=== PATIENT | female | born 1945 | race Caucasian/White ===

== ENCOUNTER 2024-01-07 12:45 | Emergency (ER) | payer OTHER ==
[2024-01-07 12:59] VITALS: RESP 18; BMI 24.5
[2024-01-07] MEDS ORDERED: ACETAMINOPHEN INJECTION 100 ML IVPB ONE ×2 (14:00→21:21)
[2024-01-07 14:18] LABS: BASO % 0.7 % (0-2.0); EOS % 1.3 % (0-4.5); HEMATOCRIT 38.2 % (32.4-45.2); HEMOGLOBIN 13.2 GM/dL (10.7-15.3); LYMPH % 21.5 % (8-40); MCH 29.7 pg (25.7-33.7); MCHC 34.5 g/dl (32.0-36.0); MEAN PLT VOLUME 6.4 fl (7.5-11.1); MONO % 6.9 % (3.8-10.2); NEUT % 69.6 % (42.8-82.8); PLATELET COUNT 228 10^3/uL (134-434); RBC 4.45 M/mm3 (3.60-5.2); RDW 13.9 % (11.6-15.6); WHITE BLOOD COUNT 7.4 K/mm3 (4.0-10.0)
[2024-01-07] MEDS: ACETAMINOPHEN 1000 MG/100 ML BAG IVPB ONE ×2 (14:21→21:20)
[2024-01-07 14:24] LABS: INR 1.2 (0.83-1.09); PROTHROMBIN TIME (PATIENT) 13.5 SEC (9.7-13.0)
[2024-01-07 14:36] LABS: POTASSIUM 4.1 mmol/L (3.5-5.1)
[2024-01-07 14:38] LABS: ALBUMIN 3.2 g/dl (3.4-5.0); CALCIUM 9.1 mg/dL (8.5-10.1)
[2024-01-07 14:39] LABS: BLOOD UREA NITROGEN 20.7 mg/dL (7-18)
[2024-01-07 14:41] LABS: CREATININE 0.4 mg/dL (0.55-1.3)
[2024-01-07 14:43] LABS: BILIRUBIN,TOTAL 0.4 mg/dL (0.2-1); TOT PROT 6.4 g/dl (6.4-8.2)
[2024-01-07] MEDS ORDERED: KETOROLAC TROMETHAMINE 15 MG/ML VIAL ONE (15:59)
[2024-01-07] MEDS: KETOROLAC TROMETHAMINE 15 MG/ML VIAL IVPUSH ONE (16:03)
[2024-01-07] MEDS ORDERED: CARBIDOPA/LEVODOPA 25/100 TABLET (FP) ONE (21:21)
[2024-01-07 23:15] VITALS: BP 131/59; PULSE 91; TEMP 98.3
== END 2024-01-08 02:25 ==
LOC: JER 12:45
PROC: 3E033NZ Introduction of Analgesics, Hypnotics, Sedatives into Peripheral Vein, Percutaneous Approach (ICD-10-PCS; principal; 2024-01-07)
PROC: 3E0333Z Introduction of Anti-inflammatory into Peripheral Vein, Percutaneous Approach (ICD-10-PCS; 2024-01-07)
PROC: 3E033NZ Introduction of Analgesics, Hypnotics, Sedatives into Peripheral Vein, Percutaneous Approach (ICD-10-PCS; 2024-01-07)
DX: G89.29 Other chronic pain (principal); M79.661 Pain in right lower leg; M25.551 Pain in right hip
CPT/HCPCS: 36415; 71045-TC-FY; 72170-TC-FY; 73502-TC-RT-FY; 73552-TC-RT-FY; 73590-TC-RT-FY; 80053; 85025; 85610; 93970-TC; 99285-25; J0131